=== PATIENT | male | born 1995 | race Caucasian/White ===

== ENCOUNTER 2018-08-22 19:56 | Emergency (ER) | payer OTHER ==
[2018-08-22] MEDS ORDERED: NS 1,000 ML IV ONE (20:28)
[2018-08-22] MEDS ORDERED: IPRATROPIUM/ALBUTEROL 3 ML DEYVIAL IH ONE (20:33)
--- NOTE | 2018-08-22 21:01 | EDPHY ---
H & P Time Seen by Provider: 08/22/18 20:15 HPI/ROS: Chief complaint. Fatigue, shortness of breath, cough, fever HPI. 22-year-old male presents emergency department with shortness of breath, cough, fever, fatigue. He has had the symptoms for 4 days. He was diagnosed with flu A 2 days ago at urgent care. They told him that he was out of the window and did not start him on Tamiflu. He has now had these flu symptoms for 4-5 days. He had asthma as a child. No vomiting or diarrhea. ROS 10 systems were reviewed and negative with the exception of the elements mentioned in the history of present illness Past Medical/Surgical History: Appendectomy Social History: Single, daily smoker, no alcohol Smoking Status: Current every day smoker Physical Exam: General Appearance: Alert well-developed male mild distress vital signs are stable Eyes: Pupils equal and round no pallor or injection. ENT, Mouth: Mucous membranes are moist. Respiratory: There are no retractions, lungs are clear to auscultation. Cardiovascular: Regular rate and rhythm. Gastrointestinal: Abdomen is soft and nontender, no masses, bowel sounds normal. Neurological: Awake and alert, sensory and motor exams grossly normal. Skin: Warm and dry, no rashes. Musculoskeletal: Neck is supple nontender. Extremities symmetrical, full range of motion. Psychiatric: Patient is oriented X 3, there is no agitation. Constitutional: Initial Vital Signs Temperature (C) 37.0 C 08/22/18 20:02 Heart Rate 98 08/22/18 20:02 Respiratory Rate 18 08/22/18 20:02 Blood Pressure 129/72 H 08/22/18 20:02 O2 Sat (%) 95 08/22/18 20:02 O2 Delivery Mode Room Air Allergies/Adverse Reactions: No Known Allergies Allergy (Unverified 08/22/18 20:04) Home Medications: Medication Instructions Recorded Albuterol 08/22/18 Mucinex 08/22/18 Trintellix 08/22/18 Medical Decision Making - Diagnostics Imaging Results: Imaging Impressions Chest X-Ray 08/22/18 20:28 Impression: No acute findings in the chest. Chest x-ray interpreted by me is normal Procedures: Jaquelin willams ED Course/Re-evaluation: Re-evaluation 9:00 p.m.. Patient and I discussed imaging study results, treatment plan including criteria for return importance of follow-up and further evaluation. He expresses understanding and agreement. He already has a meter dose inhaler Differential Diagnosis: Patient has influenza a but did not start Tamiflu. No evidence for pneumonia or significant hypoxia. - Data Points Medications Given: Discontinued Medications Albuterol/Ipratropium (Duoneb) 3 ml IH EDNOW ONE Stop: 08/22/18 20:34 Last Admin: 08/22/18 20:41 Dose: 3 ml Sodium Chloride (Ns) 1,000 mls @ 0 mls/hr IV ONCE ONE; Wide Open PRN Reason: Protocol Stop: 08/22/18 20:29 Last Admin: 08/22/18 20:41 Dose: 1,000 mls Departure - Departure Disposition: Home, Routine, Self-Care Clinical Impression: Influenza Condition: Good Instructions: Influenza (ED) Additional Instructions: Use your albuterol inhaler using 2 puffs every 4 hr to help with breathing Tylenol 1000 mg every 4-6 hours, ibuprofen 600 mg every 6 hr for fever and achiness Return for worsening symptoms. Recheck in 2 days if not improving Referrals: NONE *PRIMARY CARE P,. [Primary Care Provider] - As per Instructions Rocio Mackenzie MD [Medical Doctor] - 2-3 days, if not improved
[2018-08-22 21:34] VITALS: BP 153/91
== END 2018-08-22 21:32 | disposition home or self-care (01) ==
DX: J10.1 Influenza due to other identified influenza virus with other respiratory manifestations (principal); E86.9 Volume depletion, unspecified